=== PATIENT | female | born 1980 | race Caucasian/White ===

== ENCOUNTER 2023-05-23 08:03 | Outpatient (CLI) | payer BC, SELFPAY ==
--- NOTE | 2023-05-23 08:15 | CRLHL7_ITS ---
For Patients: As a result of the Century Cures Act, medical imaging exams and procedure reports are released immediately into your electronic medical record. You may view this report before your referring provider. If you have questions, please contact your health care provider. Technique: Double-contrast esophagram performed after the uneventful administration of effervescent crystals and thick barium followed by thin barium. Fluoroscopy time 0.42 minutes. Indication: Dysphagia Comparison: None Findings: Esophagus: Normal morphology and there is slight decreased motility. No stricture or mass. No hernia. Gastroesophageal reflux: Trace spontaneous reflux noted. Impression: Trace spontaneous reflux and mild decreased esophageal motility. Dictated by Glynn Cruz MD @ 05/23/2023 9:54:44 AM (Electronically Signed)
== END 2023-05-23 08:04 | disposition home or self-care (01) ==
LOC: RAD 08:05
PROVIDERS: PCP Family Medicine; Visit Provider Family Medicine
DX: R13.10 Dysphagia, unspecified (principal); K21.9 Gastro-esophageal reflux disease without esophagitis
CPT/HCPCS: 74221

== ENCOUNTER 2024-05-22 10:28 | Outpatient (CLI) | payer BC, SELFPAY ==
--- OUTSIDE RECORDS SUMMARY | 2024-05-22 10:30 | XMS_ITS | Clinical Summary ---
Author Organization [facility] Address [address], [place] [address] Care Team Providers Care Manpower Development Specialist Manager Name Role Phone Nia Benavidez PA-C Primary Care Provider [phone] Source Comments You are receiving this document as you are listed as the primary care provider,follow-up provider, or the patient has been referred to you for consultation.This is in compliance with the Medicare and[facility] Incentive [facility],which states Providers who transition their patient to another setting of careor provider of care or refers their patient to another provider of care shouldprovide summary care record for each transition of care or referral. [facility] Allergies Active Allergy Reactions Criticality Noted Date Comments Methylisothiazolinone Itching,Rash 06/10/2022 Other Rash 11/29/2020 Final Patch Test Results 2-2-21 Very Strong (3+) or Strong (2+) reactions: None ?? Mild (1+) reactions: Methylisothiazolinone ?? Borderline reactions (possible irritant reactions): Propolis Methyldibromoglutaronitrile ?? Medications Medication Sig Dispensed Refills Start Date End Date Status ALBUterol sulfate HFA 108 (90 Base) MCG/ACT inhalerIndications:M ild persistent asthma without complication (HRC) Inhale 2 Puffs every 4 hours as needed for Wheezing or Shortness of Breath. Do not use more than 12 puffs in 24 hours. 8.5 g 11 06/27/2020 Active fluvoxaMINE (LUVOX) 100 MG tabletIndications:De pression, major, recurrent, moderate (HRC) Take 50mg daily 45 Tablet 3 06/27/2020 Active methylPREDNISolone (MEDROL 21 TABLET DOSEPACK) 4 MG tablet Follow package directions 21 Tablet 10/04/2020 Active Additional Information Patient not taking.Reported on 10/11/2020 mometasone (ELOCON) 0.1 % ointment Apply topically two times daily as needed. To rash as needed for 2-3 weeks for severe flares. Avoid face, groin, or underarms 60 g 2 10/11/2020 Active Additional Information Patient not taking.Reported on 06/10/2022 tacrolimus (PROTOPIC) 0.1 % ointment Apply topically two times daily as needed. For rash 60 g 2 10/11/2020 Active Additional Information Patient not taking.Reported on 06/10/2022 triamcinolone acetonide (KENALOG) 0.1 % cream Apply topically two times daily as needed for Other. 30 g 06/10/2022 Active Meloxicam (MOBIC) 15 MG tablet Take 1 Tablet (15 mg) by mouth daily. 30 Tablet 10/16/2022 Active terbinafine (LAMISIL) 1 % creamIndications:arley h Apply topically two times a day. Indications: rash 24 g 01/17/2023 Active Active Problems Problem Noted Date Diagnosed Date Atopic dermatitis 11/29/2020 Allergic contact dermatitis 11/29/2020 Overview: Patch Tested Oct 2020 CAMP Codes Most conservative search codes 1: [id number] search codes 2: MFXGBYJC allows fragrance search codes 1: [id number] search codes 2: [id number] History of dysplastic nevus 10/11/2020 Overview: Dysplastic nevus, mild atypia, right forearm, s/p punch biopsy 08/27/2016. Mild persistent asthma without complication 05/2018 TOM (generalized anxiety disorder) 04/18/2015 Depression, major, recurrent, moderate 6 Overview: luvox 100 mg daily Last Assessment & Plan: Patient states that she has not felt this good in a long time. Increase in luvox has been very helpful. No side effects have been noted. She is aware of drug interactions. PHQ is 4. Refills for one year are requested. Resolved Problems Problem Noted Date Diagnosed Date Resolved Date Closed fracture of one or mo re phalanges of foot 05/21/2013 04/18/2015 Derangement of meniscus 04/02/200603/29 Overview: LW Modifier: lt LW Onset: [id number] ; Meniscus Tear Knee Degenerative Viral warts 01/02/2006 04/18/2015 Overview: LW Onset: [id number] ; Plantar Wart Anxiety state 08/29/2005 01/12/2007 Overview: LW Onset: 09Wnp33 ; Anxiety NOS Immunizations Name Administration Dates Next Due DTP 04/07/1986 Flu Vac (3+ yrs) 07/14/2012,07/17/2011 Flu Vac Preserv Free (3+yrs) 07/14/2012,07/17/20,09/05/2010 HepB Adult (Engerix-B, 20+ y rs, 3 dose series) 08/12/1998,03/15/1998,02/11/1998 Influenza (Fluzone 0.25, 6-35 mos) 07/24/2013 Influenza IIV4 (Quadrivalent) 0.5mL (11279) 07/28,12/29/2018,07/24/2013 Influenza, Unspecified Formulation 09/05/2010,,08/12/1998 OPV, Trivalent (Orimune or tOPV) 04/07/1986 PPSV23 (Pneumovax) 12/29/2018 TB Skin Test (PPD) 07/11/2007 TDAP (BOOSTRIX) 02/28/2010 Td 10/10/2004,04/15/1994 Tdap 08/03/2017 Family History Medical History Relation Name Comments Depression Father Hyperlipidemia Father Other Father arthritis Depression Mother Other Mother arthritis Relation Name Status Comments Father Mother Social History Tobacco Use Types Packs/Day Years Used Date Smoking Tobacco: Never Smokeless Tobacco: Never Alcohol Use Standard Drinks/Week Comments Yes 0 (1 standard drink = 0.6 oz pur e alcohol) light drinker' rarely. PHQ-2 Answer Date Recorded PHQ-2 Score 1 10/04/2020 Sex and Gender Information Value Date Recorded Sex Assigned at Not on file Gender Identity Not on file Sexual Orientation Not on file Last Filed Vital Signs Vital Sign Reading Time Taken Comments Blood Pressure 109/77 01/17/2023 10:11 AM CDT Pulse 85 01/17/2023 10:11 AM CDT Temperature 36.8 ??C (98.3 ??F) 01/17/2023 10:11 AM C DT Respiratory Rate 18 01/17/2023 10:11 AM CDT Oxygen Saturation 98% 01/17/2023 10:11 AM CDT Inhaled Oxygen Concentration - - Weight 91.2 kg (201 lb) 10/16/2022 12:09 PM HAMMER MILL OPERATOR Height 165.1 cm (5' 5) 06/27/2020 11:09 AM CDT Body Mass Index 33.45 06/27/2020 11:09 AM CDT Plan of Treatment Health Maintenance Due Date Last Done Comments Hep C Screening (Preventive Services) 1981 Mammogram 1981 IPV (Polio) (2 of 3 - 4-dose series) 05/05/1986 04/07/1986 HIV Screening (Preventive Services) 1997 Pneumococcal (2 - PCV) 12/30/2019 12/29/2018 Cervical Cancer Screening 12/10/20202017, 03/19/2013 (Completed), 09/04/2004 Asthma ACT 06/27/2021 06/27/2020, 06/29, 12/29/2018, Additional history exists Adult Preventive Visit 06/27/2022 0, 07/20/2019, 12/10/2017 COVID-19 Vaccine ( season) 2023 01/25/2022, 04/04/2021 Influenza (#1) 2024 08/01/2020, 07/28, 12/29/2018, Additional history exists DTaP/Tdap/Td (5 - Tdap) 08/03/2027 08/03/20 17, 02/28/2010, 10/10/2004, Additional history exists Zoster/Shingles (1 of 2) 2031 HepB Completed 08/12/1998, 02/25, 02/11/1998 HPV Vaccine Aged Out No longer eligi ble based on patient's age to complete this topic HepA Aged Out No longer eligi ble based on patient's age to complete this topic Hib Aged Out No longer eligi ble based on patient's age to complete this topic MCV4 Aged Out No longer eligi ble based on patient's age to complete this topic Procedures Procedure Name Priority Date/Time Associated Diagnosis Comments ANATOMICAL PATH LIQUID BASED Routine 12/10/2017 10:35 AM HAMMER MILL OPERATOR from Last 3 Months or Most Recently Relevant to Health Maintenance Results * Pap Smear (12/10/2017 10:35 AM HAMMER MILL OPERATOR) 12/10/2017 10:3 5 AM HAMMER MILL OPERATOR Narrative PN SOFT - 12/18/2017 7:08 PM HAMMER MILL OPERATOR FINAL GYNECOLOGICAL CYTOLOGY REPORT Pathology #: [id number] ?Date Obtained: 12/10/2017 ? Date Received: 12/11/2017 INTERPRETATION/RESULTS: Negative for Intraepithelial Lesion or Malignancy. SPECIMEN ADEQUACY: Satisfactory for Evaluation. ??Endocervical cells/transformation zone component present. Verified on 12/18/2017 ??by DARRICK COYLE(ASCP) (electronic signature) CLINICAL NOTES: ?Abnormal bleeding: No, LMP: 1-24-18, Menstrual status: None ?Apply, Current form of therapy: None apply LIQUID BASED PAP SMEAR SPECIMEN TYPE: ?ROUTINE CERVICAL PAP TEST PLEASE NOTE: The pap smear is a screening test designed to aid in the detection of cervical cancer and its precursor lesions. It is not a diagnostic procedure and should not be used as the sole means of detecting cervical cancer. Both false-positive and false-negative reports may occur. Performed at [facility], [address] [place] [id number] Nia Benavidez PA-C LAB_[address] [facility] [address] [place] [address] from Last 3 Months or Most Recently Relevant to Health Maintenance Care Teams Manpower Development Specialist Manager Relationship Specialty Start Date End Date Nia Benavidez PA-C [address] [place] [id number] PCP - General 03/22/11
--- NOTE | 2024-05-22 10:52 | W.ANESCHARGE ---
Anesthesia Charges Start Date/Time Anesthesia Start Date: 05/22/24 Anesthesia Start Time: 11:09 Stop Date/Time Anesthesia Stop Date: 05/22/24 Anesthesia Stop Time: 11:32
[2024-05-22 10:59] LABS: Ur HCG Qualitative* Negative (Negative)
--- NOTE | 2024-05-22 11:35 | W.ANESCHARGE ---
Anesthesia Charges Start Date/Time Anesthesia Start Date: 05/22/24 Anesthesia Start Time: 11:09 Stop Date/Time Anesthesia Stop Date: 05/22/24 Anesthesia Stop Time: 11:32
== END 2024-05-22 10:29 | disposition home or self-care (01) ==
LOC: OP CLINIC 10:28
PROVIDERS: PCP Family Medicine; Visit Provider Internal Medicine Gastroenterology
DX: R13.10 Dysphagia, unspecified (principal); K31.89 Other diseases of stomach and duodenum; R10.13 Epigastric pain
CPT/HCPCS: 00731; 43239; 81025; 88305; J2704; J3490